=== PATIENT | male | born 1980 | race Caucasian/White ===

== ENCOUNTER 2020-06-23 13:35 | Emergency (ER) | payer MEDICAID ==
[~2020-06-23] VITALS: Ht 160 cm; Wt 77.3 kg
[~2020-06-23 13:35] MED LIST: CELEXA40 MG PO; CYCLOBENZAPRINE10 MG PO; FISH OIL 1,0001 CA1 PO; HYDROCODON-ACE1 EAC7 PO; PRAVACHOL20 MG PO; TRIGLIDE160 MG PO; XANAX1 MG PO; ZANAFLEX4 MG PO
[2020-06-23 13:55] VITALS: BP 119/88; Ht 160 cm; Wt 77.3 kg
[2020-06-23] MEDS ORDERED: ULTRAM50 MG PO (16:00)
== END 2020-06-23 16:15 | disposition home or self-care (01) ==
LOC: D.ER 13:35
DX: M25.572 Pain in left ankle and joints of left foot (principal); M25.472 Effusion, left ankle